=== PATIENT | female | born 1950 | race Caucasian/White ===

== ENCOUNTER 2021-08-17 11:23 | Outpatient (CLI) | payer MEDICARE ==
[2021-08-17 12:49] LABS: #Eosinphils 0.1 10x3/uL (0.0-0.5); #Monocytes 0.5 10x3/uL (0.0-1.1); #Neutrophils 3.3 10x3/uL (1.5-8.4); %Basophils 0.7 % (0.0-2.0); %Eosinophils 0.9 % (0.0-6.0); %Lymphocytes 32.4 % (18.0-47.0); %Monocytes 7.9 % (0.0-10.0); %Neutrophils 57.7 % (40.0-75.0); Hemoglobin 13.8 g/dL (12.0-15.5); Mean Corpuscular HGB CONC 31.7 g/dL (32.0-36.0); Mean Corpuscular Hemoglobin 28.8 pg (27.0-33.0); Mean Corpuscular Volume 90.8 fl (81.6-98.3); Mean Platelet Volume 12.8 fl (7.4-10.4); Platelet Count 156 10x3/uL (150-450); Red Blood Cell (RBC) Count 4.79 10x6/uL (3.90-5.03); White Blood Cell (WBC) Count 5.7 10x3/uL (3.5-10.5)
[2021-08-17 23:10] LABS: SARS-CoV-2 PCR by NAA Not Detected (NotDetected)
== END 2021-08-17 11:24 | disposition home or self-care (01) ==
LOC: LABBT 11:23
PROVIDERS: ATTEND Orthopaedic Surgery Hand Surgery
DX: Z01.812 Encounter for preprocedural laboratory examination (principal); Z20.822 Contact with and (suspected) exposure to COVID-19
CPT/HCPCS: 85025; U0003; U0005

== ENCOUNTER 2021-08-19 12:28 | Day surgery (SDC) | payer MEDICARE ==
[2021-08-18 10:30] VITALS: BMI 23.1
[2021-08-19] MEDS ORDERED: ceFAZolin 2 GM/DEX 5% 100 ML BAG ONE (13:56)
[2021-08-19] MEDS ORDERED: Midazolam HCl 2 mg/2 ml Vial ONE (15:28)
[2021-08-19] MEDS ORDERED: Bacitracin Zinc Ointment 30 gm TUBE ONE (15:31)
[2021-08-19] MEDS ORDERED: Neomycin-Polymyxin 1 ML AMP ONE (15:31)
[2021-08-19] MEDS ORDERED: HYDROmorphone 0.5 MG/0.5 ML SYRINGE ONE (15:33)
[2021-08-19] MEDS ORDERED: Ketorolac Tromethamine 30 MG/ML VIAL ONE (16:05)
[2021-08-19] MEDS ORDERED: Dexamethasone 20 MG/5 ML VIAL ONE (16:05)
[2021-08-19] MEDS ORDERED: PROPOFOL 200 MG/20 ML VIAL ONE (16:05)
[2021-08-19] MEDS ORDERED: Lidocaine 1% PF 5 ML VIAL ONE (16:05)
[2021-08-19] MEDS ORDERED: Phenylephrine 10 MG/ML VIAL ONE (16:05)
[2021-08-19] MEDS ORDERED: Ondansetron PF 4 MG/2 ML Vial ONE (16:05)
[2021-08-19] MEDS ORDERED: Fentanyl 100 MCG/2 ML VIAL ONE (18:13)
== END 2021-08-19 20:00 | disposition home or self-care (01) ==
LOC: SDC 12:28
PROVIDERS: ATTEND Orthopaedic Surgery Hand Surgery
PROC: 0PSH04Z Reposition Right Radius with Internal Fixation Device, Open Approach (ICD-10-PCS; principal; 2021-08-19)
PROC: 0JBJ0ZZ Excision of Right Hand Subcutaneous Tissue and Fascia, Open Approach (ICD-10-PCS; 2021-08-19)
PROC: 01Q40ZZ Repair Ulnar Nerve, Open Approach (ICD-10-PCS; 2021-08-19)
PROC: 0MQ50ZZ Repair Right Wrist Bursa and Ligament, Open Approach (ICD-10-PCS; 2021-08-19)
PROC: 3E0T3BZ Introduction of Anesthetic Agent into Peripheral Nerves and Plexi, Percutaneous Approach (ICD-10-PCS; 2021-08-19)
DX: S52.571A Other intraarticular fracture of lower end of right radius, initial encounter for closed fracture (principal); D17.21 Benign lipomatous neoplasm of skin and subcutaneous tissue of right arm; M24.241 Disorder of ligament, right hand; S52.611A Displaced fracture of right ulna styloid process, initial encounter for closed fracture; Z79.82 Long term (current) use of aspirin; W18.09XA Striking against other object with subsequent fall, initial encounter; Y93.E3 Activity, vacuuming
CPT/HCPCS: 25332; 25609; 26111; 64415; 73100; 76000; C1713 ×3; C1776; 88304; J1100; J1170; J1885; J2250; J2370; J2405; J2704; J3010